=== PATIENT | male | born 1965 | race Caucasian/White ===

== ENCOUNTER 2016-09-02 17:16 | Emergency (ER) | payer OTHER ==
[~2016-09-02] VITALS: Ht 172.7 cm; Wt 81.3 kg
[~2016-09-02 17:16] MED LIST changes: -ASC400 PO; -ENOX80IN SQ; -IBUP-1050 PO; -MESA800T5 PO; -OMEG10007 PO; -WARF2.5T8 PO; -WARF5TAB7 PO; -WARF5TAB90 PO
[2016-09-02 17:21] VITALS: TEMP 36.9; Ht 172.7 cm; Wt 81.3 kg
--- NOTE | 2016-09-02 17:53 | EMERGENCY ROOM VISIT NOTE ---
History Report prepared by Williams: Kamari Spivey Under the Supervision of: Dr. Mich Caicedo D.O. First contact with patient: 17:35 Chief Complaint: REFERRED BY DOCTOR Stated Complaint: CLOTS History of Present Illness The patient is a 50 year old male who presents to the Emergency Room with complaints of a referral from Dr. Grant's office for an extensive acute right upper extremity DVT on Ultrasound. The patient started to experience right arm pain one week ago. The arm started to swell three days ago. The patient thought the pain and swelling were due to a right rotator cuff surgery he had recently with Dr. Grant. The patient had an Ultrasound after seeing Dr. Grant, and was referred to the ED for the DVT. The patient denies chest pain, shortness of breath, nausea, or vomiting. He had a Percocet at 1300 today. The patient is not on any blood thinners. The patient has a history of ulcerative colitis. He also had ankle surgery when he was 19 years old. The patient denies tobacco use and occasionally drinks alcohol. Source of History: patient Onset: one week Position: arm (right) Symptom Intensity: extensive Quality: other (DVT) Timing: other (acute) Associated Symptoms: No SOB, No chest pain, No nausea, No vomiting Review of Systems See HPI for pertinent positives & negatives. A total of 10 systems reviewed and were otherwise negative. Past Medical & Surgical Medical Problems: (1) Seizure-like activity Family History Patient reports no known family medical history. Social History Smoking Status: Never Smoker Alcohol Use: occasionally Drug Use: none Marital Status: single Occupation Status: employed Current/Historical Medications Scheduled Enoxaparin (Lovenox), 80 MG SQ Q12H Fish Oil ([place]-3), 2 CAP PO DAILY Mesalamine (Delzicol), 400 MG PO TID Multiple Vitamin (Multivitamin), 1 TAB PO HS Warfarin Sodium (Coumadin), 5 MG PO DAILY Scheduled PRN Ibuprofen (Advil), 400 MG PO UD PRN for Pain or Fever Allergies Coded Allergies: No Known Allergies (Unverified , 06/18/15) Physical Exam Vital Signs Date Time Temp Pulse Resp B/P Pulse Ox O2 Delivery O2 Flow Rate FiO2 09/02/16 19:24 82 16 141/77 92 09/02/16 17:21 36.9 98 20 153/91 94 Room Air Physical Exam GENERAL: Patient is awake, alert, and in no acute distress. Patient is resting comfortably and showing no signs of anxiety EYES: The conjunctivae are clear. The pupils are round and reactive. EARS, NOSE, MOUTH AND THROAT: The nose is without any evidence of any deformity. Mucous membranes are moist tongue is midline NECK: The neck is nontender and supple. RESPIRATORY: Normal respiratory effort is noted there is no evidence of wheezing rhonchi or rales CARDIOVASCULAR: Regular rate and rhythm noted there no murmurs rubs or gallops normal S1 normal S2 GASTROINTESTINAL: The abdomen is soft. Bowel sounds are present in all quadrants. Abdomen is nontender MUSCULOSKELETAL/EXTREMITIES:Symmetric swelling and mild erythema to the right upper extremity from the shoulder distally, tender to palpation over the brachial vein, pulses were symmetric, skin was warm. SKIN: There is no obvious evidence of any rash. There are no petechiae, pallor or cyanosis noted. No signs of cellulitis noted. NEUROLOGIC: Patient is awake alert and oriented x3. Medical Decision & Procedures ER Provider Diagnostic Interpretation: Radiology results as stated below per my review and radiologist interpretation: RIGHT UPPER EXTREMITY VENOUS DOPPLER CLINICAL HISTORY: Right arm pain and swelling. COMPARISON STUDY: No previous studies for comparison. FINDINGS: There was extensive venous thrombus within the right subclavian, axillary, brachial, basilic and cephalic veins. The vessels were expanded. The thrombus was occlusive. IMPRESSION: Extensive acute appearing deep venous thrombus within the right upper extremity, as described above. Findings discussed with Dr. Grant at time of dictation. Electronically signed by: Juan Luis Dominguez M.D. 09/02/2016 4:17 PM Dictated Date/Time: 09/02/2016 4:14 PM Laboratory Results 09/02/16 17:50 Red Blood Count 4.57, Mean Corpuscular Volume 91.5, Mean Corpuscular Hemoglobin 31.3, Mean Corpuscular Hemoglobin Concent 34.2, Mean Platelet Volume 8.8, Neutrophils (%) (Auto) 66.3, Lymphocytes (%) (Auto) 19.9, Monocytes (%) (Auto) 12.8, Eosinophils (%) (Auto) 0.6, Basophils (%) (Auto) 0.2, Neutrophils # (Auto ) 7.67, Lymphocytes # (Auto) 2.30, Monocytes # (Auto) 1.48, Eosinophils # (Auto ) 0.07, Basophils # (Auto) 0.02 09/02/16 17:50 Test 09/02/16 17:50 White Blood Count 11.56 K/uL (4.8-10.8) Red Blood Count 4.57 M/uL (4.7-6.1) Hemoglobin 14.3 g/dL (14.0-18.0) Hematocrit 41.8 % (42-52) Mean Corpuscular Volume 91.5 fL (80-100) Mean Corpuscular Hemoglobin 31.3 pg (25-34) Mean Corpuscular Hemoglobin Concent 34.2 g/dl (32-36) Platelet Count 247 K/uL (130-400) Mean Platelet Volume 8.8 fL (7.4-10.4) Neutrophils (%) (Auto) 66.3 % Lymphocytes (%) (Auto) 19.9 % Monocytes (%) (Auto) 12.8 % Eosinophils (%) (Auto) 0.6 % Basophils (%) (Auto) 0.2 % Neutrophils # (Auto) 7.67 K/uL (1.4-6.5) Lymphocytes # (Auto) 2.30 K/uL (1.2-3.4) Monocytes # (Auto) 1.48 K/uL (0.11-0.59) Eosinophils # (Auto) 0.07 K/uL (0-0.5) Basophils # (Auto) 0.02 K/uL (0-0.2) RDW Standard Deviation 42.3 fL (36.4-46.3) RDW Coefficient of Variation 12.6 % (11.5-14.5) Immature Granulocyte % (Auto) 0.2 % Immature Granulocyte # (Auto) 0.02 K/uL (0.00-0.02) Prothrombin Time 10.8 SECONDS (9.0-12.0) Prothromb Time International Ratio 1.0 (0.9-1.1) Activated Partial Thromboplast Time 29.2 SECONDS (21.0-31.0) Partial Thromboplastin Ratio 1.1 Anion Gap 9.0 mmol/L (3-11) Est Creatinine Clear Calc Drug Dose 90.0 ml/min Estimated GFR () 107.1 Estimated GFR (Non- 92.4 BUN/Creatinine Ratio 18.8 (10-20) Calcium Level 9.1 mg/dl (8.5-10.1) Total Bilirubin 0.8 mg/dl (0.2-1) Direct Bilirubin 0.2 mg/dl (0-0.2) Aspartate Amino Transf (AST/SGOT) 19 U/L (15-37) Alanine Aminotransferase (ALT/SGPT) 27 U/L (12-78) Alkaline Phosphatase 43 U/L (45-117) Total Protein 7.4 gm/dl (6.4-8.2) Albumin 3.7 gm/dl (3.4-5.0) Laboratory results per my review. Medications Administered Medications (Trade) Dose Ordered Sig/Sylvie Route Start Time Stop Time Status Last Admin Dose Admin Enoxaparin Sodium (Lovenox Inj) 80 mg NOW ONCE SQ 09/02/16 18:15 09/02/16 18:16 DC 09/02/16 18:29 80 MG Warfarin Sodium (Coumadin Tab) 10 mg NOW ONCE PO 09/02/16 18:15 09/02/16 18:16 DC 09/02/16 18:28 10 MG ED Course 1740: The patient was evaluated in room A9a. A complete history and physical examination were performed. 1742: Spoke with Dr. Estrada, Pathology. The patient should follow up as an outpatient. 5: Coumadin 10 mg PO, Lovenox 80 mg SQ. 0: The patient will be discharged with instructions to follow up at the Coumadin Clinic. Medical Decision Prior records reviewed and summarized above. Triage Nursing notes reviewed. Additional history obtained from the family. The patient's history was concerning for swelling and pain in the leg. Differential diagnosis: Etiologies such as DVT, musculoskeletal, infection, joint effusion, trauma, lymphedema, idiopathic, CHF, as well as others were entertained.. The patient is a 50-year-old male who presented to the emergency department for right upper extremity swelling. He was sent directly from ultrasound because of extensive DVT in the right arm. The patient had extension into the subclavian vein as well. The patient was started on blood thinners in the emergency department. I discussed the patient's laboratory and radiographic studies with him. I also discussed his case with Dr. Estrada. She recommended a referral to the vascular surgeon. The patient was set up with an appointment for the Coumadin clinic as well as the vascular surgeon. He was encouraged to keep the arm elevated as much as possible. He was also encouraged to continue all medications as prescribed and return to the emergency Department immediately if symptoms change worsen or the need arises. Otherwise he was also encouraged to return if he developed signs of chest pain or shortness of breath. Consults Time Called: 1739 Consulting Physician: Dr. Estrada, Pathology Returned Call: [phone]: Spoke with Dr. Estrada, Pathology. The patient should follow up as an outpatient. Impression Primary Impression: Deep venous thrombosis of right upper extremity Scribe Attestation The scribe's documentation has been prepared under my direction and personally reviewed by me in its entirety. I confirm that the note above accurately reflects all work, treatment, procedures, and medical decision making performed by me. Departure Information Dispostion Home / Self-Care Prescriptions Warfarin Sodium (COUMADIN) 5 Mg Tab 5 MG PO DAILY, #90 TAB Prov: Mich Caicedo, DO 09/02/16 Enoxaparin (Lovenox) 80 Mg/0.8 Ml Inj 80 MG SQ Q12H, #14 SYR Prov: Mich Caicedo, DO 09/02/16 Referrals Alan Bolaños, D.O.Int[facility]Med. (PCP) Forms HOME CARE DOCUMENTATION FORM, IMPORTANT VISIT INFORMATION, WORK / SCHOOL INSTRUCTIONS Patient Instructions DVT, My [facility] Additional Instructions Follow-up with the Coumadin clinic this . Continue all medications as prescribed. Take 10 milligrams of the Coumadin tomorrow followed by 5 milligrams of Coumadin every evening from that time on.
[2016-09-02] MEDS ORDERED: ASC400 PO (18:01)
[2016-09-02] MEDS ORDERED: OMEG10007 PO (18:01)
[2016-09-02] MEDS ORDERED: IBUP-1050 PO (18:01)
[2016-09-02 18:09] LABS: BASO % 0.2 %; BASO ABS # 0.02 K/uL (0-0.2); COMPLETE YES; EOS % 0.6 %; HEMATOCRIT 41.8 % (42-52); IG% 0.2 %; LYMPH % 19.9 %; MEAN CELL VOLUME 91.5 fL (80-100); MEAN CORPUSCULAR HEMOGLOBIN 31.3 pg (25-34); MEAN CORPUSCULAR HGB CONC 34.2 g/dl (32-36); MEAN PLATELET VOLUME 8.8 fL (7.4-10.4); MONO % 12.8 %; NEUT % 66.3 %; PLATELET COUNT 247 K/uL (130-400); RED BLOOD COUNT 4.57 M/uL (4.7-6.1); WHITE BLOOD COUNT 11.56 K/uL (4.8-10.8)
[2016-09-02] MEDS ORDERED: ENOXAPARIN 80 MG/0.8 ML SYR SQ ONE (18:15)
[2016-09-02] MEDS ORDERED: WARFARIN SOD 5 MG TAB PO ONE (18:15)
[2016-09-02 18:17] LABS: PARTIAL THROMBOPLASTIN RATIO 1.1; PROTHROMBIN TIME (PATIENT) 10.8 SECONDS (9.0-12.0)
[2016-09-02] MEDS ORDERED: WARF5TAB90 PO (18:23)
[2016-09-02] MEDS ORDERED: ENOX80IN SQ (18:23)
[2016-09-02 18:26] LABS: BUN/CREATININE RATIO 18.8 (10-20); CALCIUM 9.1 mg/dl (8.5-10.1); CREATININE 0.96 mg/dl (0.60-1.40); POTASSIUM 3.8 mmol/L (3.5-5.1)
[2016-09-02 19:24] VITALS: BP 141/77; PULSE 82; O2SAT 92
[2016-09-22] MEDS ORDERED: WARF5TAB7 PO (12:26)
[2016-09-22] MEDS ORDERED: WARF2.5T8 PO (12:26)
[2016-11-03] MEDS ORDERED: MESA800T5 PO (09:09)
== END 2016-09-02 19:27 | disposition home or self-care (01) ==
LOC: C.EDB 17:17 → C.EDA 19:27
DX: I82.621 Acute embolism and thrombosis of deep veins of right upper extremity (principal); Z79.01 Long term (current) use of anticoagulants; Z51.81 Encounter for therapeutic drug level monitoring

== ENCOUNTER → 2016-09-02 | Outpatient (CLI) | payer OTHER ==
[~2016-09-02] MED LIST: ASC400 PO; ASCO1CAP3 PO; CHOL100027 PO; ENOX80IN SQ; IBUP-1050 PO; MESA1CAP2 PO; MESA800T5 PO; MULTTAB58 PO; OMEG10007 PO; TRIA1SPR2 NAE; WARF2.5T8 PO; WARF5TAB7 PO; WARF5TAB90 PO
--- NOTE | 2016-09-02 16:18 | DIAGNOSTIC IMAGING REPORT ---
RIGHT UPPER EXTREMITY VENOUS DOPPLER CLINICAL HISTORY: Right arm pain and swelling. COMPARISON STUDY: No previous studies for comparison. FINDINGS: There was extensive venous thrombus within the right subclavian, axillary, brachial, basilic and cephalic veins. The vessels were expanded. The thrombus was occlusive. IMPRESSION: Extensive acute appearing deep venous thrombus within the right upper extremity, as described above. Findings discussed with Dr. Grant at time of dictation. Electronically signed by: Juan Luis Dominguez M.D. 09/02/2016 4:17 PM Dictated Date/Time: 09/02/2016 4:14 PM
== END | disposition home or self-care (01) ==
LOC: C.ULTRBC 15:02
PROVIDERS: ATTEND Orthopaedic Surgery
DX: M79.603 Pain in arm, unspecified (principal); M79.89 Other specified soft tissue disorders; I82.621 Acute embolism and thrombosis of deep veins of right upper extremity

== ENCOUNTER → 2016-09-08 | Day surgery (SDC) | payer OTHER ==
[~2016-09-08] MED LIST changes: +ASC400 PO; -ASCO1CAP3 PO; +CEFAZOLIN 1000MG/55 ML D5W IV SCH; -CHOL100027 PO; +ENOX80IN SQ; +IBUP-1050 PO; -MESA1CAP2 PO; +MESA800T5 PO; +OMEG10007 PO; +PATIENT'S HEIGHT AND/OR WEIGHT NEEDED SCH; +SODIUM CHLORIDE 0.9% 1000ML 1,000 ML IV SCH; -TRIA1SPR2 NAE; +WARF2.5T8 PO; +WARF5TAB7 PO; +WARF5TAB90 PO
== END | disposition home or self-care (01) ==
LOC: C.ACU 07:05
PROVIDERS: ATTEND Surgery Vascular Surgery
DX: I82.401 Acute embolism and thrombosis of unspecified deep veins of right lower extremity (principal); Z53.9 Procedure and treatment not carried out, unspecified reason

== ENCOUNTER 2016-09-15 07:09 | Inpatient (IN) | payer OTHER ==
[2016-09-15] VITALS (14 sets, daily range): BP systolic 118–153; BP diastolic 64–97; PULSE 66–88; TEMP 36.5–36.6; O2SAT 94–98; Ht 172.7 cm; Wt 83.1 kg
[~2016-09-15] VITALS: Ht 172.7 cm; Wt 83.1 kg
--- NOTE | 2016-09-15 06:32 | History and Physical ---
History & Physical Date of Service Sep 15, 2016. History & Physical CC: DVT of right arm HPI: Mr. Underwood states he has never had a DVT in the past, although he has had some right shoulder problems in the last 2 years or so--even undergoing rotator cuff surgery by Dr. Grant about 18 months ago. 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 The patient states that on 08/26/2016, he began to have some discomfort in his right shoulder and upper arm, but it was not severe. He states that 4 days later, he developed severe pain in his right upper arm as well as severe swelling of his right entire arm and was seen at [facility] for evaluation after an ultrasound demonstrated a DVT in his right arm. According to ultrasound report, the patient an occlusive DVT of his subclavian vein down to his forearm. Due to the extensive DVT, the patient was referred to our office for further evaluation. The patient arrives today stating severe discomfort in his right arm. He states that the swelling may have gone very slightly, but that it is still very edematous. He states that he does try to keep it elevated if possible and that he was started on Coumadin and Lovenox since being at the ER a few days ago. He has never had a DVT or PE in the past and has no family history of the same. He is a nonsmoker and has no definite injury to his right arm or shoulder recently. He denies other complaints at this time including headaches, fevers, chills, dizziness, chest pain, shortness of breath, abdominal pain, nausea, vomiting, diarrhea, constipation, dysuria, hematuria, claudication, rest pain, nonhealing wounds or ulcers or other complaints. ALLERGIES: No known allergies. HOME MEDICATIONS: Reconciled in the chart and include Delzicol, fish oil, Lovenox, multivitamin and warfarin. PAST MEDICAL HISTORY: Essentially negative. His surgical history is positive for ankle surgery and rotator cuff surgery. SOCIAL HISTORY: Negative for tobacco use. He states that he may have #3-5 beers per month and denies any illicit drug use. FAMILY HISTORY: Positive for diabetes and cancer. REVIEW OF SYSTEMS: Negative for fatigue, fevers, sweats, weight loss, abnormal moles or rashes, vision changes or photophobia, ear pain, sinus problems or sore throat, cough, shortness of breath, hemoptysis or wheezing, chest pain, palpitations or syncope. He does admit to severe edema of his right arm. He denies abdominal pain, nausea, vomiting, diarrhea, constipation, dysuria, hematuria, muscle weakness, headaches, dizziness, numbness or seizures. PHYSICAL EXAMINATION: The patient's vital signs today were as follows: Blood pressure 136/90, heart rate of 100, and oxygen 97% on room air. The patient is 172.72 cm tall and weighs 81.7 kg. Constitutional: In general, patient is a generally fit, middle-aged male in no acute distress. He ambulates without assistance and is active, alert and oriented x4 with normal recent and remote memory. Head is normocephalic, atraumatic. Eyes are EOMI. ENMT exam demonstrates no hearing loss, rhinorrhea or pharyngeal erythema. Neck is supple , nontender with midline trachea without masses or crepitus. Lung exam demonstrates no dyspnea. They are clear to auscultation bilaterally. Cardiovascular exam demonstrates a nondisplaced apical impulse with a regular rate and rhythm without murmurs, lifts, heaves, thrills or gallops. Peripheral pulses full and equal in all extremities unless otherwise noted, specifically they are normal in his carotid, brachial, radial, femoral, posterior tibial and dorsalis pedis pulses. The patient demonstrates no bruits in his carotid, abdominal or femoral area. Abdomen is soft, nontender with normoactive bowel sounds in all 4 quadrants without guarding or rebound. There is no CVA tenderness. No pulsatile masses appreciable. Musculoskeletal exam demonstrates normal tone and strength for age. The patient's right upper extremity demonstrates a +3 to +4 pitting edema throughout his arm as well as an erythematous discoloration. There are some varicosities in his right upper arm and shoulder area as well as petechiae consistent with venous engorgement and venous obstruction. The patient's left upper extremity demonstrates no cyanosis, edema, clubbing, varicosities or ulcers. The patient's bilateral lower extremities demonstrate no cyanosis, edema, clubbing, varicosities, or ulcers. Neurologic: The patient has grossly intact cranial nerves and grossly intact sensation. ASSESSMENT AND PLAN: 1. Occlusive DVT of the right upper extremity. 2. Effort thrombosis. PLAN: Patient is admitted for thrombolysis /thrombectomy of the occlusive DVT in his right arm in order to minimize residual problems and due to the severity of the edema and discomfort he is having. The procedure and risks were discussed with the patient, He expresses understanding and agreement to proceed.
[~2016-09-15 07:09] MED LIST changes: -MESA800T5 PO; -PATIENT'S HEIGHT AND/OR WEIGHT NEEDED SCH; -WARF2.5T8 PO; -WARF5TAB7 PO
[2016-09-15 07:51] LABS: INR 2.2 (0.9-1.1); PARTIAL THROMBOPLASTIN RATIO 1.5; PROTHROMBIN TIME (PATIENT) 24.9 SECONDS (9.0-12.0)
[2016-09-15 07:58] LABS: CREATININE 1.1 mg/dl (0.60-1.40)
[2016-09-15] MEDS ORDERED: MIDAZOLAM HCL 1 MG/ML 2ML VIAL ONE (08:19)
[2016-09-15] MEDS ORDERED: HEPARIN SOD (PORCINE) 1000 UNIT/ML 10 ML VIAL ONE (08:19)
[2016-09-15] MEDS ORDERED: FENTANYL CITRATE INJ 50 MCG/1 ML 2 ML VIAL ONE (08:19)
--- NOTE | 2016-09-15 08:43 | History & Physical Bridge Note ---
H&P Re-Evaluation Bridge Note: I have examined the patient, reviewed the History & Physical and in the interval since the performance of the History & Physical I have noted the following changes of clinical significance: No changes noted
--- NOTE | 2016-09-15 08:44 | Procedure Note ---
Pre-Mod Sedation Assessment General Date of Moderate Sedation: Sep 15, 2016. Vital Signs: Vital Signs Past 12 Hours Date Time Temp Pulse Resp B/P Pulse Ox O2 Delivery O2 Flow Rate FiO2 09/15/16 07:40 36.5 88 16 138/71 95 Room Air Pre-Sedation Airway Assessment Oral Cavity: WNL Smoking Status: Never Smoker Mallampati Classification: Class I ASA Classification: Class I Notes The planned sedation has been discussed with the patient and consent obtained. I have identified the patient, determined the appropriateness of sedation and have assessed the patient immediately prior to the procedure. All medicine(s) and interventions are by my order.
[2016-09-15] MEDS ORDERED: HEPARIN SOD (PORCINE) 5000 UNIT/ML 1 ML VIAL ONE (08:48)
[2016-09-15] MEDS ORDERED: CEFAZOLIN IV 2,000 MG/60 ML D5W IV ONE (08:50)
[2016-09-15] MEDS ORDERED: LIDOCAINE HCL 1% 20 ML VIAL INJ ONE (09:18)
[2016-09-15] MEDS ORDERED: MIDAZOLAM HCL 1 MG/ML 2ML VIAL IV ONE (09:19)
[2016-09-15] MEDS ORDERED: FENTANYL CITRATE INJ 50 MCG/1 ML 2 ML VIAL IV ONE (09:31)
[2016-09-15] MEDS ORDERED: HEPARIN 25000 UNIT/500 ML D5W ONE (09:44)
[2016-09-15] MEDS ORDERED: IODIXANOL (VISIPAQUE) 270 MG/ML 150ML XX ONE (09:59)
--- NOTE | 2016-09-15 10:10 | Procedure Note ---
Post-Moderate Sedation Plan General Date of Moderate Sedation Sep 15, 2016. Vital Signs: Vital Signs Past 12 Hours Date Time Temp Pulse Resp B/P Pulse Ox O2 Delivery O2 Flow Rate FiO2 09/15/16 07:40 36.5 88 16 138/71 95 Room Air Review - Discharge Plan Post Moderate Sedation Plan: On clinical assessment, the patient appears to have tolerated the conscious sedation without complications. Patient is recovering as anticipated. Patient will continue to be monitored by nursing and may be discharged when conscious sedation discharge criteria are met.
--- NOTE | 2016-09-15 10:12 | [facility] Post Operative Brief Note ---
Immediate Operative Summary Operative Date Sep 15, 2016. Pre-Operative Diagnosis right upper extremity deep vein thrombosis Post-Operative Diagnosis same Procedure(s) Performed Right Upper Extremity Venogram, Thrombolytic Therapy, Moderate Concious Sedation [id number] (40 min) Surgeon Dr. Menjivar Guest Relations Officer Surgeon(s) Dr. Ruiz Estimated Blood Loss 0 Findings thrombosed right subclavian vein Specimens none Anesthesia Local with moderate conscious sedation Complication(s) None Disposition
[2016-09-15] MEDS ORDERED: HEPARIN 25,000 UNIT/500ML D5W 500 ML IV SCH (10:15)
[2016-09-15] MEDS ORDERED: MoRPHine SULFATE 2 MG/ML CARP IV PRN (10:15)
--- NOTE | 2016-09-15 10:26 | DIAGNOSTIC IMAGING REPORT ---
DATE OF PROCEDURE: 09/15/2016 PREOPERATIVE DIAGNOSIS: Right upper extremity venous thrombosis. POSTOPERATIVE DIAGNOSIS: Same. PROCEDURE: 1. Right upper extremity percutaneous access and venogram. 2. Catheter placement in preparation for thrombolytic therapy, right upper extremity. SURGEON: Dr. Adria Menjivar. MOLD PREPARER: Dr. Baldemar Ruiz MD ANESTHESIA: Local plus conscious sedation.(40min) ESTIMATED BLOOD LOSS: 2 mL. INDICATIONS: This is a 50-year-old gentleman who presented recently with a right upper extremity venous thrombosis, which extended both into the superficial and deep venous system of the right arm. He was started on anticoagulation. His swelling did improve somewhat with anticoagulation therapy, but continues to have right lower extremity discomfort. A venogram and thrombolysis was indicated for relief of symptoms in this young patient with effort thrombosis. DESCRIPTION OF PROCEDURE: The superficial veins were mapped in the operating room with the ultrasound. The cephalic vein appeared to be of good quality and superficial noted for access. A timeout was performed and all parties agreed to the patient and procedure to be performed. Antibiotics were given within one hour of the incision time. Local anesthetic was instilled over the cephalic vein at the level of the antecubital fossa. The cephalic vein was accessed with a micropuncture needle and over wire was upsized to a short sheath. A venogram was performed which showed extensive thrombus of the subclavian vein extending into the deep and superficial systems. A Glidewire was advanced through the cephalic vein into the subclavian. The sheath was upsized. There was some difficulty advancing the wire past lesion. Using a Quick-Cross catheter and angled glide catheter, the wire was able to be passed into the innominate vein. A repeat venogram showed intraluminal position in the innominate vein. Next, the TPA infusion catheter was brought onto the field. It was parked at the proximal aspect of the lesion in the subclavian vein. A wire was placed through the catheter to ensure that the TPA administration would go through all the side ports through a 20 cm catheter length was chosen. The side port of the short 6-[place] sheath was hooked up to a heparin infusion. A toughy-carloz valve was placed on the back of the TPA infusion wire and secured in place. This entire system was held securely to the arm with a towel and Tegaderm. The patient will be taken to the ICU for instillation of thrombolytic therapy. We will plan on a catheter recheck and venogram tomorrow. The patient tolerated the procedure and was taken to ICU room in satisfactory condition with no apparent complications. I was present and scurbbed for the entire procedure. SUKHDEV
[2016-09-15 10:54] LABS: BASO % 0.2 %; BASO ABS # 0.02 K/uL (0-0.2); EOS % 1.4 %; HEMATOCRIT 40.5 % (42-52); IG% 1.1 %; LYMPH % 31.4 %; LYMPH ABS # 2.82 K/uL (1.2-3.4); MEAN CELL VOLUME 90.8 fL (80-100); MEAN CORPUSCULAR HEMOGLOBIN 30.9 pg (25-34); MEAN PLATELET VOLUME 8.4 fL (7.4-10.4); MONO % 9.5 %; NEUT % 56.4 %; PLATELET COUNT 435 K/uL (130-400); RED BLOOD COUNT 4.46 M/uL (4.7-6.1); WHITE BLOOD COUNT 8.98 K/uL (4.8-10.8)
[2016-09-15] MEDS ORDERED: ALTEPLASE, RECOMBINANT 24 MG in SODIUM CHLORIDE 0.9% 250ML 216 ML IV SCH ×2 (11:00)
[2016-09-15 11:02] LABS: PARTIAL THROMBOPLASTIN RATIO 1.6
[2016-09-15 11:09] LABS: COMPLETE YES; MEAN CORPUSCULAR HGB CONC 34.1 g/dl (32-36)
[2016-09-15] MEDS ORDERED: MoRPHine SULFATE 4 MG/ML 1 ML CARP\\VIAL IV PRN (11:15)
--- NOTE | 2016-09-15 14:01 | CRITICAL CARE CONSULTATION ---
DATE OF CONSULTATION: 09/15/2016 CHIEF COMPLAINT: Right upper extremity pain. 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 He is very fit and works out with weights and doing cardiovascular activity 5 days per week. About 2-1/2 weeks ago, he was doing some jump roping and noticed the next day that he had significant right upper extremity pain. Retrospectively, he thinks the pain may have started around August 26. Nonetheless, his arm began to swell and he made an appointment with Dr. Grant, who had done a rotator cuff repair on him about 18 months ago. He was seen in Dr. Grant's office on September 02 and sent for an upper extremity venous Doppler study, which showed extensive venous thrombus within the right subclavian, axillary, brachial, basilic and cephalic veins. The thrombus was deemed to be occlusive. He then presented to the Emergency Department, where he was treated with Lovenox 80 mg subQ x1 as well as 10 mg of Coumadin. He is being followed in the Coumadin clinic. He presented today after consultation with Dr. Menjivar and underwent catheter-directed thrombolysis without any reported difficulty. He is now in the intensive care unit, where TPA continues to infuse along with heparin to the side port of the catheter. He has no specific complaints. He has been taking some Percocet on occasion for pain, but reports that the swelling in his arm has decreased significantly over the past several weeks. He denies shortness of breath, nausea, or vomiting. He denies any recent bleeding. PAST MEDICAL HISTORY: Ulcerative colitis. Seizure-like activity in 2014, which he believes may have been secondary to something his ulcerative colitis medication was being made with, something that may have to do with capsule the medication was contained in. He was never on any antiepileptics. Rhabdomyolysis. PAST SURGICAL HISTORY: Right rotator cuff repair, ankle surgery and multiple nasal surgeries as a infant. ALLERGIES: No known drug allergies. OUTPATIENT MEDICATIONS: [place] 3 fish oil 2 caps daily, ibuprofen p.r.n., mesalamine 800 mg p.o. t.i.d., multivitamin daily and Coumadin 5 mg daily. SOCIAL HISTORY: He works as a respiratory therapist at [employer]. He rarely drinks alcohol and has never smoked. He lives alone. FAMILY HISTORY: He denies. Both his mother and father are in good health. REVIEW OF SYSTEMS: Twelve point review of systems was obtained and is negative or noncontributory other than what is presented in the history of present illness. PHYSICAL EXAMINATION: GENERAL: This is a well-developed and well-nourished man lying in bed, in no distress. VITAL SIGNS: Temperature 36.5, heart rate 66, respiratory rate 16, blood pressure 120/70, and oxygen saturation 98% on room air. HEENT: Pupils are equally round and reactive to light. He wears glasses. Oral mucosa is moist. Posterior pharynx is clear. NECK: Trachea midline. LUNGS: Clear to auscultation bilaterally. No rales, rhonchi or wheezes. CHEST: Symmetric expansion. HEART: Regular rate and rhythm. ABDOMEN: Soft, nondistended, and nontender. Active bowel sounds. EXTREMITIES: Warm. Lower extremities, no edema. Right upper extremity has swelling over the shoulder and upper arm. There is some mild ecchymosis over the biceps area. He has 2 IV lines running underneath a sterile towel, which is covered with Tegaderm. The right radial pulse is 1+. The hand is not swollen. The left arm is within normal limits. LABORATORY DATA: White blood cell count 8.98, hemoglobin 13.8, hematocrit 40.5, and platelets 435. PTT 41.1. INR earlier today 2.2. BUN 19 and creatinine 1.1. IMPRESSION: 1. Right upper extremity occlusive deep venous thrombosis secondary to effort thrombosis. 2. Status post venogram and catheter-directed thrombolysis today, doing well. 3. History of ulcerative colitis. 4. History of seizure-like activity in 2014, not on any antiepileptics. PLAN: 1. Continue TPA and heparin per Dr. Menjivar's orders. 2. Neurovascular checks per protocol. 3. Watch for any signs of bleeding. 4. Follow up venogram tomorrow. Thank you for asking me to help take care of this nice gentleman. Please call me with any questions or concerns. SUKHDEV
[2016-09-15 16:33] LABS: BASO % 0.4 %; BASO ABS # 0.04 K/uL (0-0.2); COMPLETE YES; EOS % 1.9 %; HEMATOCRIT 38.8 % (42-52); IG% 0.5 %; LYMPH % 32.4 %; LYMPH ABS # 3.54 K/uL (1.2-3.4); MEAN CELL VOLUME 90.4 fL (80-100); MEAN CORPUSCULAR HEMOGLOBIN 30.5 pg (25-34); MEAN CORPUSCULAR HGB CONC 33.8 g/dl (32-36); MEAN PLATELET VOLUME 8.2 fL (7.4-10.4); MONO % 9.1 %; NEUT % 55.7 %; PLATELET COUNT 434 K/uL (130-400); RED BLOOD COUNT 4.29 M/uL (4.7-6.1); WHITE BLOOD COUNT 10.91 K/uL (4.8-10.8)
[2016-09-15 18:09] LABS: PARTIAL THROMBOPLASTIN RATIO 1.8
[2016-09-15] MEDS ORDERED: NURSING VERBAL MED ORDER ONE ×2 (22:30→23:30)
[2016-09-15 22:33] LABS: BASO % 0.2 %; BASO ABS # 0.03 K/uL (0-0.2); COMPLETE YES; EOS % 1.4 %; HEMATOCRIT 39.9 % (42-52); IG% 0.7 %; LYMPH % 28.3 %; LYMPH ABS # 3.82 K/uL (1.2-3.4); MEAN CELL VOLUME 90.3 fL (80-100); MEAN CORPUSCULAR HEMOGLOBIN 30.8 pg (25-34); MEAN CORPUSCULAR HGB CONC 34.1 g/dl (32-36); MEAN PLATELET VOLUME 8.4 fL (7.4-10.4); MONO % 9.3 %; NEUT % 60.1 %; PLATELET COUNT 437 K/uL (130-400); RED BLOOD COUNT 4.42 M/uL (4.7-6.1); WHITE BLOOD COUNT 13.49 K/uL (4.8-10.8)
[2016-09-15] MEDS: DOCUSATE SODIUM 100 MG CAP PO SCH (22:35)
[2016-09-15] MEDS ORDERED: ALTEPLASE, RECOMBINANT 12 MG in SODIUM CHLORIDE 0.9% 250ML 228 ML IV SCH ×2 (23:00)
[2016-09-15 23:14] LABS: PARTIAL THROMBOPLASTIN RATIO 1.7
[2016-09-15] MEDS: ONDANSETRON INJ 2 MG/ML 2 ML VIAL IV PRN (23:17)
[2016-09-15] MEDS: BISACODYL 10 MG SUPP PR PRN (23:45)
[2016-09-16] VITALS (13 sets, daily range): BP systolic 130–160; BP diastolic 80–89; PULSE 59–80; TEMP 36.6–36.7; O2SAT 94–98
[2016-09-16] MEDS: BISACODYL 10 MG SUPP PR PRN (00:47)
[2016-09-16 04:30] LABS: BASO % 0.2 %; BASO ABS # 0.03 K/uL (0-0.2); COMPLETE YES; EOS % 0.7 %; HEMATOCRIT 39.4 % (42-52); IG% 0.7 %; LYMPH % 14.8 %; LYMPH ABS # 2.47 K/uL (1.2-3.4); MEAN CELL VOLUME 89.7 fL (80-100); MEAN CORPUSCULAR HGB CONC 34.5 g/dl (32-36); MONO % 9.2 %; NEUT % 74.4 %; PLATELET COUNT 383 K/uL (130-400); RED BLOOD COUNT 4.39 M/uL (4.7-6.1); WHITE BLOOD COUNT 16.72 K/uL (4.8-10.8)
[2016-09-16] MEDS: ONDANSETRON INJ 2 MG/ML 2 ML VIAL IV PRN (05:12)
[2016-09-16] MEDS ORDERED: CEFAZOLIN IV 1,000 MG in DEXTROSE 5% 50ML 50 ML IV SCH (06:00)
[2016-09-16] MEDS ORDERED: CEFAZOLIN 1000MG/55 ML D5W IV SCH (06:00)
[2016-09-16 07:11] LABS: PARTIAL THROMBOPLASTIN RATIO 1.7
[2016-09-16] MEDS ORDERED: FENTANYL CITRATE INJ 50 MCG/1 ML 2 ML VIAL ONE (07:20)
[2016-09-16] MEDS ORDERED: MIDAZOLAM HCL 1 MG/ML 2ML VIAL ONE ×2 (07:21→09:52)
[2016-09-16] MEDS ORDERED: HEPARIN SOD (PORCINE) 5000 UNIT/ML 1 ML VIAL ONE (07:22)
[2016-09-16] MEDS ORDERED: PROMETHAZINE HCL INJ 25 MG in SODIUM CHLORIDE 0.9% 50ML 50 ML IV ONE (08:00)
--- NOTE | 2016-09-16 08:05 | Progress Note ---
Progress Note Date of Service Sep 16, 2016. Progress Note Patient for repeat venogram for TPA follow up. I have discussed the risks options and benefits of the procedure with the patient. The patient understands the risks options and benefits and agrees to the procedure.I have examined the patient, reviewed the History & Physical and in the interval since the performance of the History & Physical I have noted the following changes of clinical significance: No changes noted
--- NOTE | 2016-09-16 08:06 | Procedure Note ---
Pre-Mod Sedation Assessment General Date of Moderate Sedation: Sep 16, 2016. Vital Signs: Vital Signs Past 12 Hours Date Time Temp Pulse Resp B/P Pulse Ox O2 Delivery O2 Flow Rate FiO2 09/16/16 08:01 36.7 80 12 151/89 96 Room Air 09/16/16 07:00 80 12 151/89 96 Room Air 09/16/16 06:00 59 12 160/89 96 Room Air 09/16/16 05:00 62 17 94 Room Air 09/16/16 04:00 Room Air 09/16/16 04:00 36.7 62 20 144/85 97 Room Air 09/16/16 03:00 65 20 95 Room Air 09/16/16 02:00 71 18 150/86 97 Room Air 09/16/16 01:00 66 18 96 Room Air 09/16/16 00:01 36.6 67 14 142/80 98 Room Air 09/15/16 23:59 Room Air 09/15/16 23:00 73 16 96 Room Air 09/15/16 22:00 74 20 135/87 98 Room Air 09/15/16 21:00 72 16 153/94 96 Room Air Pre-Sedation Airway Assessment Oral Cavity: WNL Short Thick Neck: No Smoking Status: Never Smoker Mallampati Classification: Class I ASA Classification: Class I Notes The planned sedation has been discussed with the patient and consent obtained. I have identified the patient, determined the appropriateness of sedation and have assessed the patient immediately prior to the procedure. All medicine(s) and interventions are by my order.
[2016-09-16] MEDS ORDERED: ATROPINE SULFATE 0.1 MG/ML 10 ML SYR ONE (08:28)
[2016-09-16 08:34] LABS: BUN/CREATININE RATIO 13.9 (10-20); CALCIUM 8.6 mg/dl (8.5-10.1); CREATININE 0.89 mg/dl (0.60-1.40); MAGNESIUM 1.8 mg/dl (1.8-2.4); POTASSIUM 3.9 mmol/L (3.5-5.1)
[2016-09-16] MEDS ORDERED: MIDAZOLAM HCL 1 MG/ML 2ML VIAL IV ONE ×2 (08:40→09:55)
[2016-09-16] MEDS ORDERED: FENTANYL CITRATE INJ 50 MCG/1 ML 2 ML VIAL IV ONE (08:49)
[2016-09-16] MEDS ORDERED: LIDOCAINE HCL 1% 20 ML VIAL INJ ONE (09:09)
[2016-09-16] MEDS ORDERED: NURSING VERBAL MED ORDER ONE ×3 (09:30→13:30)
[2016-09-16] MEDS ORDERED: SODIUM CHLORIDE 0.9% 1000ML 1,000 ML IV SCH ×2 (09:45→10:35)
[2016-09-16] MEDS ORDERED: IODIXANOL (VISIPAQUE) 270 MG/ML 150ML XX ONE (10:26)
[2016-09-16] MEDS ORDERED: ORM MISCELLANEOUS MED XX ONE (10:33)
--- NOTE | 2016-09-16 10:34 | Procedure Note ---
Post-Moderate Sedation Plan General Date of Moderate Sedation Sep 16, 2016. Vital Signs: Vital Signs Past 12 Hours Date Time Temp Pulse Resp B/P Pulse Ox O2 Delivery O2 Flow Rate FiO2 09/16/16 08:01 36.7 80 12 151/89 96 Room Air 09/16/16 08:00 80 16 Room Air 09/16/16 08:00 Room Air 09/16/16 07:00 80 12 151/89 96 Room Air 09/16/16 06:00 59 12 160/89 96 Room Air 09/16/16 05:00 62 17 94 Room Air 09/16/16 04:00 Room Air 09/16/16 04:00 36.7 62 20 144/85 97 Room Air 09/16/16 03:00 65 20 95 Room Air 09/16/16 02:00 71 18 150/86 97 Room Air 09/16/16 01:00 66 18 96 Room Air 09/16/16 00:01 36.6 67 14 142/80 98 Room Air 09/15/16 23:59 Room Air 09/15/16 23:00 73 16 96 Room Air Review - Discharge Plan Post Moderate Sedation Plan: On clinical assessment, the patient appears to have tolerated the conscious sedation without complications. Patient is recovering as anticipated. Patient will continue to be monitored by nursing and may be discharged when conscious sedation discharge criteria are met.
--- NOTE | 2016-09-16 10:35 | [facility] Post Operative Brief Note ---
Immediate Operative Summary Operative Date Sep 16, 2016. Pre-Operative Diagnosis right upper extremity deep vein thrombosis Post-Operative Diagnosis same Procedure(s) Performed TPA recheck, Mechanical Thrombectomy venous, Percutaneous Transluminal Angioplasty central and peripheral, Moderate Concious Sedation [id number] Menjivar Tap And Die Maker Technician Surgeon(s) Dr. Ruiz Estimated Blood Loss 5 ml Findings subclavian vein with chronic changes, small vein Specimens none Anesthesia Local with moderate conscious sedation Complication(s) None Disposition Surgical ICU
[2016-09-16] MEDS ORDERED: IBUPROFEN 200 MG TAB PO PRN (10:45)
[2016-09-16] MEDS ORDERED: OXYCODONE/ACETAMINOPHEN 5-325 TAB PO PRN (10:45)
--- NOTE | 2016-09-16 11:11 | DIAGNOSTIC IMAGING REPORT ---
DATE OF PROCEDURE: 09/16/2016 PREOPERATIVE DIAGNOSIS: Right upper extremity deep venous thrombosis with TPA infusion catheter in place. POSTOPERATIVE DIAGNOSIS: Same. PROCEDURE PERFORMED: 1. Right upper extremity venogram. 2. Balloon angioplasty of right brachial, axillary, subclavian innominate veins. 3. Mechanical thrombectomy of right upper extremity veins. 4. Ultrasound guided access of right brachial vein. ANESTHESIA: Local plus conscious sedation.(46min) SURGEON: Dr. Adria Menjivar. SALES PROPERTY MANAGER: Dr. Baldemar Ruiz. ESTIMATED BLOOD LOSS: 5 mL. INDICATIONS: This is a 50-year-old gentleman who presented recently with right upper extremity swelling and was diagnosed with DVT. He was taken to the procedure room yesterday where TPA catheter was left in place. He had extensive axillosubclavian and brachial DVT which was both acute and chronic in appearance. He returns to the procedure room today for recheck of the catheter and further intervention for treatment of his acute on chronic DVT. PROCEDURE: The patient was brought to the procedure suite and a time out was performed. All parties agreed to correct patient and procedures to be performed. The right upper extremity was prepped and draped in normal sterile fashion. All the previous catheters were brought onto the field. Of note, there was a Haakon tPA infusion catheter already in place. On x-ray, it appeared that this had been advanced just a couple of millimeters from where we left it yesterday. This would explain some of the ectopy that he was having. The contrast was injected through the Haakon infusion catheter which showed some minor improvement of the DVT as compared to yesterday. We elected to continue to treat this area with balloon angioplasty. The infusion wire was removed and was replaced with an angled Glidewire. The Haakon catheter was removed. We began by angioplastying the innominate and subclavian veins with an 8 mm balloon. We then upsized to a 7 [place] sheath and again used a 12 mm Era high pressure balloon. Angiography at the end of this showed a patent subclavian and innominate vein, although it was quite small in nature. Again, most of the thrombus had a chronic sort of appearance. We then attempted to treat more of the proximal brachial and axillary veins by angling a catheter distal down the arm. Unfortunately, due to valves and sclerotic appearance we were not able to pass the wire. We then turned our attention to obtaining access to a deep vein. Ultrasound was prepped and brachial vein was accessed using a micropuncture at the level of the antecubital fossa. Of note, there were some thrombosed brachial veins in this area, but we did find one patent vein which was accessed on the first attempt. The sheath was upsized and a venogram was performed. We were able to pass a wire from the deep system into the central veins. Our original plan was to lyse this area again with a TPA overnight. However, the Haakon catheter would not advance through the small brachial veins. We tried to predilate this with a small 4 mm balloon. This was brought onto the field and was inflated just to profile. The angiography at the end showed a small extravasation from the brachial vein. Given his ongoing extravasation we did not feel that it was appropriate to continue with TPA infusion. Therefore, AngioJet catheter was brought onto the field and mechanical thrombolysis was undertaken. This was done after upsizing to a 6-Trist[place] sheath. The AngioJet catheter was used in thrombectomy mode and the entire innominate, subclavian, axillary and brachial veins were treated. Completion venogram at the end of this showed some slight improvement. Next, this entire segment was selected to be treated with a 6 mm balloon. A long 6 mm venoplasty balloon was used to treat the sclerotic veins throughout the right arm including the brachial, axillary, subclavian and innominate veins. There was a very tight band at the level of the costal margin. Therefore, a high pressure Era 6 mm balloon was brought onto the field and was inflated to greater than 30 mmHg. This seemed to release the tight band which again was right at the costal margin. A repeat venogram again showed that the brachial, axillary, and subclavian innominate veins were all patent. They were quite sclerotic in nature. There was no residual acute thrombus. At this point, we elected to terminate the procedure given that there was some moderate amount of flow through his [place] venous system. He did have quite a bit of collaterals and some of these resolved with our treatment. All of the sheaths, wires and catheters were removed. Pressure was held on the 2 access sites in the arm. Hemostasis was achieved. A sterile dressing was applied. The patient was transferred to recovery room in satisfactory condition with no apparent complications. I was present and scurbbed for the entire procedure. STEPHD
[2016-09-16] MEDS ORDERED: HEPARIN 25,000 UNIT/500ML D5W 500 ML IV SCH (11:15)
--- NOTE | 2016-09-16 11:55 | Discharge Instructions ---
Discharge Instructions Date of Service Sep 16, 2016. Admission Reason for Admission: Right Upper Extremity Deep Vein Thrombosis Discharge Discharge Diagnosis / Problem: Effort thrombosis right subclavian vein Discharge Goals Goal(s): Therapeutic intervention Activity Recommendations Activity Limitations: per Instructions/Follow-up section . Instructions / Follow-Up Instructions / Follow-Up Call [phone] to schedule a follow up appointment if one not already scheduled. Place gauntlet on right arm tomorrow SPECIAL CARE INSTRUCTIONS: Medications: * Continue to take your medications as directed. If you have been given a prescription for Plavix, please fill it immediately and take as directed. Incision Care: * Your puncture site may have some bruising and minor swelling for about one week. * You will have a small dressing covering your puncture site. You may remove the dressing after 24 hours and shower. You may let the warm soapy water run over it, but be sure to dry the puncture site well and keep it dry. * DO NOT IMMERSE THE INCISION IN A TUB/POOL/etc. UNTIL HEALED. * Puncture sites should be kept covered with a band-aid until it begins to heal. Restrictions: * Depending on whether you leg or arm was punctured to access the arteries, you will be required to lay flat, hold your arm still, or both, for about 4 hours after the procedure to prevent bleeding. * Limit your activity for the first 48 hours. You may walk and go up and down steps. Avoid excessive bending or movement at the puncture site. Possible Complications: * Excessive Swelling - after blood flow is improved you may notice increased swelling in the lower legs. This is a normal response. This usually depends on the amount of blockages in the leg, how long they have been there prior to your procedure and how much blood flow was restored. Elevating your legs will help to improve this. Please notify our office ([phone] ) if the swelling does not go away after lying in bed overnight. * Infection/Drainage/Bleeding - Drainage or bleeding from the puncture site should be minimal. If you have excessive bleeding or drainage, call our office ([phone]) right away. * Pain - You may experience some mild pain or soreness at your puncture site. If your pain does not improve, please contact our office ([phone]). Call your doctor and seek emergent treatment if you develop: * Temperature above 101 degrees * Any fever or chills * Any redness or purulent drainage from the puncture site * Any new dusky/blue colored toes or feet with coolness or sharp or aching pain. SKIN IRRITATION: * You may experience some redness and/or swelling in the area where radiation was administered. If any skin irritation occurs, please contact your family physician. FOLLOW UP VISIT: Keep any scheduled doctor appointments. Current Hospital Diet Patient's current hospital diet: Regular Diet Discharge Diet Recommended Diet: Regular Diet Procedures Procedures Performed: TPA recheck, Mechanical Thrombectomy venous, Percutaneous Transluminal Angioplasty central and peripheral, Moderate Concious Sedation [id number] Pending Studies Studies pending at discharge: no Medical Emergencies . Who to Call and When: Medical Emergencies: If at any time you feel your situation is an emergency, please call 911 immediately. . Non-Emergent Contact Non-Emergency issues call your: Surgeon . "Provider Documentation" section prepared by Adria Menjivar. VTE Core Measure Inpt VTE Proph given/why not?: Warfarin (Coumadin), Other Anticoagulation
[2016-09-16 13:00] LABS: PROTHROMBIN TIME (PATIENT) 22.3 SECONDS (9.0-12.0)
[2016-09-16] MEDS ORDERED: MESALAMINE 400 MG CAPDR PO SCH ×2 (14:00)
[2016-09-16] MEDS: DOCUSATE SODIUM 100 MG CAP PO SCH (14:11)
[2016-09-16] MEDS ORDERED: WARFARIN SOD 5 MG TAB PO SCH (16:00)
[2016-09-16] MEDS ORDERED: MULTIVITAMIN TAB PO SCH (21:00)
[2016-09-17] MEDS ORDERED: OMEGA-3 (PURIFIED FISH OIL) 1 GM CAP PO SCH (09:00)
--- NOTE | 2016-09-19 13:31 | DISCHARGE SUMMARY ---
ADMISSION DIAGNOSIS: Occlusive deep venous thrombosis of the right upper extremity. DISCHARGE DIAGNOSES: 1. Status post right upper arm mechanical thrombectomy with percutaneous transluminal angioplasty and TPA administration. 2. Right upper arm occlusive deep venous thrombosis. DISCHARGE CONDITION: Stable. CONSULTATIONS IN THE HOSPITAL: Included critical care during his ICU stay. PROCEDURES IN THE HOSPITAL: Included: 1. Right upper extremity venogram with administration of thrombolytic therapy on 09/15/2016. 2. A right upper arm mechanical thrombectomy venous as well as percutaneous transluminal angioplasty of central and peripheral veins on 09/16/2016. HISTORY OF PRESENT ILLNESS: Mr. Underwood is a 50-year-old male who presented to our office for evaluation at the recommendations of the Emergency Room physicians after he began to have severe pain and swelling of his right upper extremity and was evaluated and found to have an extensive occlusive DVT from subclavian vein to his forearm. He was immediately started on anticoagulation with Coumadin and Lovenox bridging and was advised to follow up in our office. The patient was noted to have severe edema and discomfort of his right upper extremity and due to the extensive DVT was recommended to consider undergoing a right upper arm mechanical thrombectomy with possible thrombolysis at the hospital. The procedure, risks, benefits and alternatives were discussed with the patient. He expressed understanding and agreement to proceed. HOSPITAL COURSE: The patient was admitted 09/15/2016 after undergoing his initial right upper arm venogram and a TPA infusion catheter was inserted. TPA continued to infuse overnight and patient did well from his first procedure. Day 1 postop he returned to the operating room for reevaluation of the effectiveness of the TPA where another venogram was performed. At that time he was noted to have some chronic DVT in his subclavian vein as well as a small caliber veins. He did undergo further mechanical thrombectomy that day with COLLECTOR OF PORT of central and peripheral veins which he tolerated well. He did have reduction in the edema of his arm. The patient is to continue with anticoagulation. He is felt to be stable enough for discharge on postop day 1 after undergoing his second look procedure. PHYSICAL EXAMINATION: VITAL SIGNS: On day of discharge, vital signs were as follows: Blood pressure of 130/89 with a heart rate of 73, temperature of 36.7, respiratory rate of 16 and oxygen 94% on room air. CONSTITUTIONAL: The patient is a healthy appearing, well-nourished, well-developed middle-aged male in no acute distress. He is ambulatory without assistance and active, alert and oriented x4 with normal recent and remote memory. HEAD: Normocephalic and atraumatic. EYES: EOMI. EARS, NOSE, THROAT: EXAMINATION: Demonstrated no hearing loss, rhinorrhea or pharyngeal erythema. NECK: Supple, nontender with midline trachea without masses or crepitus. LUNGS: Exam demonstrates no dyspnea. They were clear to auscultation bilaterally. CARDIOVASCULAR EXAMINATION: Demonstrated a regular rate and rhythm without murmurs or gallops. Peripheral pulses are full and equal unless otherwise noted. Specifically they were normal in his carotid, brachial, radial, femoral, posterior tibial and dorsalis pedis pulses. The patient was without bruits. ABDOMEN: Soft, nontender with normoactive bowel sounds. MUSCULOSKELETAL EXAMINATION: Demonstrated normal tone and strength for age. His right upper extremity demonstrated 1-2+ pitting edema which is significantly decreased from preop. He no longer had the erythematous discoloration. His petechia were still present. The patient's left upper extremity demonstrated no cyanosis, clubbing, varicosities or ulcers. Bilateral lower extremities demonstrated no cyanosis, edema, varicosities or ulcers. NEUROLOGIC: The patient has grossly intact cranial nerves and grossly intact sensation. Diet upon discharge should be a regular diet with Coumadin for Coumadin patient. His medications are reconciled on the chart and are as per his discharge instructions. Followup should be with Dr. Menjivar within 2 weeks for reevaluation. The patient was advised to call the office with any questions or concerns.
[2016-09-22] MEDS ORDERED: WARF5TAB7 PO (12:26)
[2016-09-22] MEDS ORDERED: WARF2.5T8 PO (12:26)
[2016-11-03] MEDS ORDERED: MESA800T5 PO (09:09)
== END 2016-09-16 14:37 | disposition home or self-care (01) | DRG 271 ==
LOC: C.ACU 07:09 → C.MSICU 10:23 → UNDOADMIN 10:27 → C.MSICU 10:27
PROVIDERS: ADMIT Surgery Vascular Surgery; ATTEND Surgery Vascular Surgery
PROC: B51MYZZ Fluoroscopy of Right Upper Extremity Veins using Other Contrast (ICD-10-PCS; principal; 2016-09-15 09:00)
PROC: 05H333Z Insertion of Infusion Device into Right Innominate Vein, Percutaneous Approach (ICD-10-PCS; principal; 2016-09-15 09:00)
PROC: 3E03317 Introduction of Other Thrombolytic into Peripheral Vein, Percutaneous Approach (ICD-10-PCS; principal; 2016-09-15 09:00)
PROC: 057Y3ZZ Dilation of Upper Vein, Percutaneous Approach (ICD-10-PCS; 2016-09-16)
PROC: 05C53ZZ Extirpation of Matter from Right Subclavian Vein, Percutaneous Approach (ICD-10-PCS; 2016-09-16)
DX: I82.621 Acute embolism and thrombosis of deep veins of right upper extremity (principal); K51.90 Ulcerative colitis, unspecified, without complications

== ENCOUNTER → 2016-11-14 | Outpatient (CLI) | payer OTHER ==
[~2016-11-14] MED LIST changes: -ASC400 PO; +ASPCH81X PO; +ASPI325T4 PO; -CEFAZOLIN 1000MG/55 ML D5W IV SCH; -ENOX80IN SQ; +MESA800T5 PO; -SODIUM CHLORIDE 0.9% 1000ML 1,000 ML IV SCH; +WARF2.5T8 PO; +WARF5TAB7 PO; -WARF5TAB90 PO
[2016-11-14 15:01] LABS: ALT/SGPT 32 U/L (12-78); AST/SGOT 21 U/L (15-37); BLOOD UREA NITROGEN 19 mg/dl (7-18); BUN/CREATININE RATIO 19.2 (10-20); CALCIUM 8.9 mg/dl (8.5-10.1); CARBON DIOXIDE 30 mmol/L (21-32); CHLORIDE 106 mmol/L (98-107); GLUCOSE 109 mg/dl (70-99); POTASSIUM 4.2 mmol/L (3.5-5.1); SODIUM 142 mmol/L (136-145)
[2016-11-14 15:07] LABS: ESTIMATED AVERAGE GLUCOSE 114 mg/dl; HA1C FLAG Normal (Normal)
[2016-11-14 15:12] LABS: ALB/GLOB RATIO 1.1 (0.9-2); ALKALINE PHOSPHATASE 44 U/L (45-117); THYROID STIMULATING HORMONE 0.591 uIu/ml (0.300-4.500)
== END | disposition home or self-care (01) ==
LOC: C.LABBC 10:34
PROVIDERS: ATTEND Family Medicine
DX: E04.1 Nontoxic single thyroid nodule (principal); R73.03 Prediabetes

== ENCOUNTER → 2016-11-18 | Outpatient (CLI) | payer OTHER ==
--- NOTE | 2016-11-18 10:00 | DIAGNOSTIC IMAGING REPORT ---
THYROID ULTRASOUND HISTORY: THYROID NODULE COMPARISON: Thyroid ultrasound 05/11/2015. FINDINGS: Right lobe: 5.0 x 1.5 x 1.7 cm. No nodules. Left lobe: 4.9 x 1.5 x 1.6 cm. No significant change in 1.6 x 1.2 x 1.0 cm hypoechoic nodule within the interpolar region. This is slightly heterogeneous. This appears to represent a solid nodule. There may be a few punctate microcalcifications. Isthmus: 4 mm in thickness. No nodules. IMPRESSION: No change in size in the 1.6 x 1.0 x 1.2 cm hypoechoic nodule within the left thyroid lobe. However, given the solid appearance, a follow-up ultrasound guided fine-needle aspiration is recommended for further evaluation. Electronically signed by: Suraj Butler M.D. 11/18/2016 9:58 AM Dictated Date/Time: 11/18/2016 9:51 AM
== END | disposition home or self-care (01) ==
LOC: C.ULTRBC 09:07
PROVIDERS: ATTEND Family Medicine
DX: E04.1 Nontoxic single thyroid nodule (principal)

== ENCOUNTER → 2016-12-22 | Outpatient (CLI) | payer OTHER ==
--- NOTE | 2016-12-22 10:57 | DIAGNOSTIC IMAGING REPORT ---
ULTRASOUND-GUIDED LEFT LOBE THYROID FINE-NEEDLE ASPIRATION BIOPSY CLINICAL HISTORY: Left lobe thyroid nodule COMPARISON STUDY: 11/18/2016 FINDINGS: A timeout was performed. The risks of the procedure were explained the patient and informed consent was obtained. Patient was prepped in sterile fashion. The skin was anesthetized 1% lidocaine. Under ultrasound guidance, 5 total passes were performed utilizing a 25-gauge needle into the patient's left lobe thyroid nodule. Initial pathologic review is borderline for adequacy. The pathologist recommended that a fifth sample was acquired. This was obtained but not reviewed immediately. Final pathology is pending. There were no suspicious findings on review of samples 1 through 4. IMPRESSION: Ultrasound-guided fine-needle aspiration of a left lobe thyroid nodule was performed. Final pathology is pending at this time. Electronically signed by: Eric Turner M.D. 12/22/2016 10:56 AM Dictated Date/Time: 12/22/2016 10:54 AM
== END | disposition home or self-care (01) ==
LOC: C.ULTR 09:48
PROVIDERS: ATTEND Family Medicine
DX: E04.1 Nontoxic single thyroid nodule (principal)

== ENCOUNTER → 2017-02-11 | Outpatient (CLI) | payer OTHER ==
[~2017-02-11] MED LIST changes: -ASPCH81X PO; -ASPI325T4 PO
--- NOTE | 2017-02-12 07:03 | DIAGNOSTIC IMAGING REPORT ---
ULTRASOUND LEFT UPPER EXTREMITY VENOUS CLINICAL HISTORY: Left arm pain. COMPARISON STUDY: No priors.. TECHNIQUE: Real-time, grayscale, and color Doppler sonography of the deep veins of the left upper extremity is performed. Compression and augmentation were utilized. FINDINGS: There is no sonographic evidence of deep venous thrombosis identified in the left upper extremity. The left internal jugular, axillary, and brachial veins are patent and normally compressible. Normal venous waveforms and augmentation are seen within the left subclavian vein. The cephalic and basilic veins are clear. The visualized radial and ulnar veins are patent. IMPRESSION: There is no sonographic evidence of deep venous thrombosis identified in the left upper extremity. Electronically signed by: Apollo Milian M.D. 02/12/2017 7:01 AM Dictated Date/Time: 02/12/2017 7:01 AM
== END | disposition home or self-care (01) ==
LOC: C.ULTR 22:54
PROVIDERS: ATTEND Emergency Medicine
DX: Z86.718 Personal history of other venous thrombosis and embolism (principal); M79.602 Pain in left arm

== ENCOUNTER → 2017-05-08 | Outpatient (CLI) | payer OTHER ==
[~2017-05-08] MED LIST changes: +ASPCH81X PO; +ASPI325T4 PO
[2017-05-08 10:10] LABS: PROSTATE SPECIFIC ANTIGEN 1.46 ng/ml (0.000-4.000)
== END | disposition home or self-care (01) ==
LOC: C.LAB 06:52
PROVIDERS: ATTEND Physician Assistant
DX: Z00.00 Encounter for general adult medical examination without abnormal findings (principal); R73.03 Prediabetes

== ENCOUNTER → 2017-05-27 | Day surgery (SDC) | payer OTHER ==
[2017-05-20 07:36] VITALS: Ht 175.3 cm; Wt 80.0 kg
[~2017-05-27] VITALS: Ht 175.3 cm; Wt 80.0 kg
[~2017-05-27] MED LIST changes: -IBUP-1050 PO; -OMEG10007 PO; -WARF2.5T8 PO; -WARF5TAB7 PO
[2017-05-27 11:19] VITALS: BP 140/81; PULSE 71; TEMP 36.4; O2SAT 97
== END | disposition home or self-care (01) ==
LOC: C.GI 10:50
PROVIDERS: ATTEND Internal Medicine
DX: K51.90 Ulcerative colitis, unspecified, without complications (principal); Z53.8 Procedure and treatment not carried out for other reasons